=== PATIENT | female | born 1995 | race Caucasian/White ===

== ENCOUNTER 2017-07-19 05:22 | Inpatient (IN) | payer MEDICAID ==
[2017-07-19] MEDS ORDERED: OXYTOCIN 30 UNITS/LR 500 ML BAG IV (07:00)
[2017-07-19] MEDS ORDERED: METHYLERGONOVINE 0.2 MG INJ IM ×2 (08:00→11:00)
[2017-07-19] MEDS ORDERED: CARBOPROST 250 MCG INJ IM ×2 (08:00→11:00)
[2017-07-19] MEDS ORDERED: OXYTOCIN 30 UNITS/LR 500 ML IV ×2 (08:00→11:00)
[2017-07-19] MEDS ORDERED: MISOPROSTOL 200 MCG TAB PR ×2 (08:00→11:00)
[2017-07-19] MEDS ORDERED: CEFAZOLIN 2 GM/50 ML (PMX) 50 ML IV (08:00)
[2017-07-19] MEDS: LACTATED RINGER'S 1,000 ML IV (08:11)
[2017-07-19 08:20] LABS: ADD MAN DIFF? NO
[2017-07-19 08:28] LABS: BASOPHILS % 0.5 % (0.0-2.0); EOSINOPHILS # 0.1 10^3/ul (0.0-0.5); EOSINOPHILS % 1.2 % (0.0-7.0); HEMATOCRIT 34.1 % (37.0-47.0); HEMOGLOBIN 11.3 g/dl (12.0-16.0); LYMPHOCYTES # 1.7 10^3/ul (0.8-2.9); LYMPHOCYTES % 29.8 % (18.0-55.0); MEAN CORPUSCULAR HEMOGLOBIN 29.6 pg (29.0-33.0); MEAN CORPUSCULAR HGB CONC 33.1 g/dl (32.0-37.0); MEAN CORPUSCULAR VOLUME 89.3 fl (72.0-104.0); MEAN PLATELET VOLUME 10.1 fl (7.4-10.4); MONOCYTE # 0.4 10^3/ul (0.3-0.9); MONOCYTES % 6.8 % (0.0-13.0); NEUTROPHIL # 3.4 10^3/ul (1.6-7.5); PLATELET COUNT 234 10^3/UL (140-415); RED BLOOD COUNT 3.82 10^6/ul (4.20-5.40); RED CELL DISTRIBUTION WIDTH 13.7 % (11.5-14.5)
[2017-07-19 08:28] LABS: WHITE BLOOD COUNT 5.7 10^3/ul (4.8-10.8)
[2017-07-19 08:36] LABS: INR 0.88; PT RATIO 0.9
[2017-07-19 08:37] LABS: PARTIAL THROMBOPLASTIN TIME 26.9 Sec (25.0-35.0)
[2017-07-19] MEDS ORDERED: PHENYLephrine (100 MCG/ML) 5ML SYG (09:20)
[2017-07-19] MEDS ORDERED: OXYTOCIN 10 UNIT INJ (09:20)
[2017-07-19] MEDS ORDERED: ONDANSETRON 4 MG INJ (09:20)
[2017-07-19] MEDS ORDERED: morphine SULFATE/PF (10 MG/10 ML) INJ (09:20)
[2017-07-19] MEDS ORDERED: BUPIVACAINE 0.75%/DEXT (SPINAL) 2 ML INJ (09:21)
[2017-07-19] MEDS ORDERED: PHENYLephrine 10 MG INJ (09:47)
[2017-07-19] MEDS ORDERED: METOCLOPRAMIDE 10 MG INJ (10:02)
[2017-07-19] MEDS ORDERED: DEXTROSE 5%-LR 1,000 ML IV (10:39)
[2017-07-19] MEDS: OXYTOCIN 30 UNITS/LR 500 ML IV ×2 (10:56→15:22)
[2017-07-19] MEDS ORDERED: morphine 2 MG INJ IV (11:00)
[2017-07-19] MEDS ORDERED: DIPHENHYDRAMINE 50 MG INJ IV (11:00)
[2017-07-19] MEDS ORDERED: ONDANSETRON 4 MG INJ IV (11:00)
[2017-07-19] MEDS ORDERED: NALOXONE (0.4 MG/ML) INJ IV (11:00)
[2017-07-19] MEDS ORDERED: METHYLERGONOVINE 0.2 MG TAB PO (11:00)
[2017-07-19] MEDS: LANOLIN 7 GM TUBE TOP (15:21)
[2017-07-19] MEDS: SENNA/DOCUSATE NA (8.6MG/50MG) TAB PO (21:00)
[2017-07-19 22:01] LABS: RAPID PLASMA REAGIN NONREACTIVE (NR)
[2017-07-19] MEDS: KETOROLAC 30 MG INJ IV (22:48)
[2017-07-20 07:40] LABS: ADD MAN DIFF? NO
[2017-07-20 07:48] LABS: BASOPHILS % 0.3 % (0.0-2.0); EOSINOPHILS % 0.3 % (0.0-7.0); HEMATOCRIT 31.3 % (37.0-47.0); HEMOGLOBIN 10.5 g/dl (12.0-16.0); LYMPHOCYTES # 1.2 10^3/ul (0.8-2.9); LYMPHOCYTES % 11.3 % (18.0-55.0); MEAN CORPUSCULAR HEMOGLOBIN 29.8 pg (29.0-33.0); MEAN CORPUSCULAR HGB CONC 33.5 g/dl (32.0-37.0); MEAN CORPUSCULAR VOLUME 88.9 fl (72.0-104.0); MONOCYTE # 0.7 10^3/ul (0.3-0.9); MONOCYTES % 6.1 % (0.0-13.0); NEUTROPHIL # 8.9 10^3/ul (1.6-7.5); NEUTROPHILS % 81.5 % (30.0-74.0); PLATELET COUNT 204 10^3/UL (140-415); RED BLOOD COUNT 3.52 10^6/ul (4.20-5.40); RED CELL DISTRIBUTION WIDTH 13.9 % (11.5-14.5)
[2017-07-20 07:48] LABS: WHITE BLOOD COUNT 10.9 10^3/ul (4.8-10.8)
[2017-07-20] MEDS: INFLUENZA VIRUS VACCINE 0.5 ML (DISPENSING) IM* (09:00)
[2017-07-20] MEDS: SENNA/DOCUSATE NA (8.6MG/50MG) TAB PO ×2 (09:29→22:04)
[2017-07-20] MEDS: OXYCODONE/ACETAMINOPHEN (5/325) TAB PO ×3 (09:29→18:07)
[2017-07-20] MEDS: IBUPROFEN 800 MG TAB PO ×2 (15:02→22:05)
[2017-07-21] MEDS: OXYCODONE/ACETAMINOPHEN (5/325) TAB PO ×2 (01:14→09:20)
[2017-07-21] MEDS: IBUPROFEN 800 MG TAB PO ×2 (05:58→13:19)
[2017-07-21] MEDS: MAGNESIUM HYDROXIDE 30ML CUP PO (09:20)
[2017-07-21] MEDS: SENNA/DOCUSATE NA (8.6MG/50MG) TAB PO (09:20)
[2017-07-21] MEDS: BISACODYL 10 MG SUPP PR (12:29)
[2017-07-21] MEDS: DIPHTH/TET/ACEL PERTUSS (ADULT) 0.5 ML VIAL IM* (16:29)
[2017-07-22] MEDS ORDERED: MEASLES,MUMPS,RUBELLA VACCINE INJ SC* (09:00)
[2017-07-22] MEDS ORDERED: DIPHTH/TET/ACEL PERTUSS (ADULT) 0.5 ML VIAL IM* (09:00)
== END 2017-07-21 17:00 | disposition home or self-care (01) | DRG 766 ==
LOC: L-D 05:22 → PP1 13:04
PROC: 10D00Z1 Extraction of Products of Conception, Low, Open Approach (ICD-10-PCS; principal; 2017-07-19 09:00)
PROC: 0U940ZZ Drainage of Uterine Supporting Structure, Open Approach (ICD-10-PCS; 2017-07-19 09:00)
PROC: 4A1HXCZ Monitoring of Products of Conception, Cardiac Rate, External Approach (ICD-10-PCS; 2017-07-19 09:00)
DX: O34.211 Maternal care for low transverse scar from previous cesarean delivery (principal); O34.83 Maternal care for other abnormalities of pelvic organs, third trimester; N83.8 Other noninflammatory disorders of ovary, fallopian tube and broad ligament; Z3A.39 39 weeks gestation of pregnancy; Z23 Encounter for immunization; Z37.0 Single live birth
CPT/HCPCS: 85025; 85610; 85730; 86592; 86850; 86900; 86901; 90715; 99464